=== PATIENT | male | born 1965 | race Caucasian/White ===

== ENCOUNTER → 2016-07-01 | Outpatient (CLI) | payer OTHER ==
[~2016-07-01] MED LIST: LORTAB 7.5-5001 TAB PO; MOTRIN400 MG PO; NORCO 5/325 TAB1 TAB PO
--- NOTE | ~2016-07-01 | CR63 ---
[facility] A Service of [facility] RADIOLOGY TEXT RESULTS PATIENT: MILAGROS POLANCO LOCATION: [facility] : [birth year] UNIT #: [id number] AGE: [address]: Anitra Lacy MD SEX: M ORDER DR: [id number] [facility]. [place], [place] [address] [id number] O MR#: [id number] Acc #: [id number] NAME: MILAGROS POLANCO : 1965 SEX: M STUDY DATE/TIME: 07/01/2016 10:52 UNIT: [facility] ROOM: STUDY DESCRIPTION: CR Chest 2 View Attending Physician: Anitra Lacy M.D. Ordering Physician: Anitra Lacy M.D. MEDICAL IMAGING REPORT This report is preliminary unless electronic signature is present EXAM Chest, 07/01/2016. HISTORY 50-year-old male patient. Health maintenance. 20-year smoking history. History of chronic bronchitis. COMPARISON STUDIES Portable chest, 06/02/2012. FINDINGS 2-view chest demonstrates normal stable cardiac size and configuration. Hilar structures and mediastinal contours are preserved. Bilateral lungs are expanded and clear. Surgical slips project left infraclavicular location, possibly in the left axilla. IMPRESSION Negative and stable chest; no acute finding. Dictated by... Higinio Lemus M.D. THIS IS AN ELECTRONICALLY VERIFIED REPORT Higinio Lemus M.D. at 07/02/2016 8:06 AM REY/estevan TD: 07/01/2016 18:03 JOB #: [id number] MEDICAL IMAGING REPORT [facility] A Service [facility] RADIOLOGY TEXT RESULTS PATIENT: MILAGROS POLANCO LOCATION: [facility] : 69 UNIT #: [id number] AGE: [address]: Anitra Lacy MD SEX: M ORDER DR: Page 1 of 1 COPY
== END | disposition home or self-care (01) ==
LOC: CRAD 10:40
DX: J40 Bronchitis, not specified as acute or chronic (principal); Z72.0 Tobacco use
CPT/HCPCS: 71020